=== PATIENT | male | born 1985 | race Caucasian/White ===

== ENCOUNTER 2016-10-27 13:52 | Observation (INO) | payer OTHER ==
[2016-10-27] MEDS ORDERED: Sodium Chloride 0.9% 1000 ML 1,000 ML IV STA (13:53)
[2016-10-27] MEDS ORDERED: Geodon 20 MG INJ IM ONE ×2 (13:55→14:00)
[2016-10-27] MEDS ORDERED: VERSED 5 MG/5 ML ONE (14:01)
[2016-10-27] MEDS: VERSED 5 MG/5 ML IM ONE ×2 (14:02→14:57)
[2016-10-27] MEDS ORDERED: VERSED 5 MG/5 ML IV ONE (14:08)
[2016-10-27] MEDS ORDERED: Sodium Chloride 0.9% 1000 ML 1,000 ML ONE (14:11)
[2016-10-27 14:20] LABS: Mean Cell Volume 92.7 fl (78-100); Mean Corpuscular Hemoglobin 30.9 pg (26-32); Mean Platelet Volume 10.6 fl (6-9.5); Platelet Count 266 K/mm3 (150-450); Red Blood Count 4.53 M/mm3 (4.1-5.6); Red Cell Distribution Width 12.8 % (11.5-14.0); White Blood Count 16.5 K/mm3 (4.0-10.5)
[2016-10-27 14:35] LABS: Collection Type VOID
[2016-10-27 14:44] LABS: ACETAMINOPHEN < 2.0 ug/ml (10-30); ALBUMIN 4.9 g/dL (3.4-5.0); ALKALINE PHOSPHATASE 102 U/L (46-116); ANION GAP 17.4 MEQ/L (5-15); BILIRUBIN,TOTAL 0.7 mg/dL (0.2-1.0); BLOOD UREA NITROGEN 22 mg/dL (9-20); CHLORIDE 103 mEq/L (98-107); Carbon Dioxide 24.9 mEq/L (21-32); Glucose 117 MG/DL (70-110); SGOT/AST 20 U/L (15-37); SGPT/ALT 18 U/L (12-78); SODIUM 141 mEq/L (136-145); Total Protein 8.6 gm/dL (6.4-8.2)
[2016-10-27 14:46] LABS: COMPLETE URINE MICROSCOPIC? YES; Ph 5.5 (5-6)
--- NOTE | 2016-10-27 14:51 | ERPHSYRPT ---
- History of Present Illness Time Seen by Provider: 10/27/16 13:53 Source: patient, EMS, police Patient Subjective Stated Complaint: pt arrived per ambulance for not acting right. pt also escorted by police. pt yelling he wants to . "just put me in the ground" pt found in bath tub of house, there was drugs around pt, pt unsure of drugs he took maybe k2, pt handcuffed to bed, Triage Nursing Assessment: pt mouth twitching back and forth, restless legs, pt alert, anxious. no trauma noted, Physician History: CC: diff breathing Hx: 31 y/o male patient brought to ER per EMS with police in attendance. EMS was called to a residence for diff breathing and drugs. Lots of drug paraperhnalia in the residence. Pt told EMS he wanted to kill himself. Asked police to shoot him so he could . He ran to the bathtub and told EMS he was going to drown himself. Pt was agitated and had to be restrained per police. He apparently has been a patient of [facility] in the past. He denies current medications. Timing/Duration: today Severity: severe Allergies/Adverse Reactions: No Known Drug Allergies Allergy (Unverified 04/27/12 02:27) Home Medications: No Home Meds 04/27/12 [History] Hx Tetanus, Diphtheria Vaccination/Date Given: No Hx Influenza Vaccination/Date Given: No Immunizations Up to Date: Yes - Review of Systems Constitutional: No Fever Respiratory: Dyspnea All Other Systems: Unable due to condition (pt won't answer) - Past Medical History Pertinent Past Medical History: Yes Cardiac History: Other Other Medical History: Heart Murmur - Past Surgical History Past Surgical History: No - Social History Smoking Status: Current every day smoker How long have you smoked: 10yrs Exposure to second hand smoke: Yes Drug Use: none Patient Lives Alone: No - Nursing Vital Signs Nursing Vital Signs: Initial Vital Signs Temperature 99.5 F Temperature Source Oral Pulse Rate 98 Respiratory Rate 16 Blood Pressure [Left Arm] 129/73 Pain Intensity 0 - Physical Exam General Appearance: alert, other (agitated appearance, dry mucous membranes, heavily tattooed sking. ) Eye Exam: PERRL/EOMI Ears, Nose, Throat Exam: dry mucous membranes Neck Exam: supple, No meningismus Respiratory Exam: normal breath sounds Cardiovascular Exam: regular rate/rhythm, tachycardia Gastrointestinal/Abdomen Exam: soft, No tenderness, No distention, No mass, No guarding Extremity Exam: normal inspection, normal range of motion Neurologic Exam: alert, other (partially cooperative) Skin Exam: warm, dry, No rash SpO2 Interpretation: normal SpO2: 99 Oxygen Delivery: Room Air - Course Nursing assessment & vital signs reviewed: Yes EKG Interpreted by Me: RATE (109), Sinus Tach, NORMAL AXIS, Q-wave (borderline inferior), Non-specific ST Changes - Radiology Exams cxr X-ray Interpretation: Reviewed by me, Negative Ordered Tests: Active Orders 24 hr Category Date Time Status CO2 Monitoring STAT Care 10/27/16 13:56 Active Jewelry Engraver STAT Care 10/27/16 13:53 Active Clean Catch Urine Specimen STAT Care 10/27/16 13:53 Active EKG-ER Only STAT Care 10/27/16 13:53 Active IV Insertion STAT Care 10/27/16 13:53 Active NPO (ED) STAT Care 10/27/16 13:56 Active Pulse Oximetry (ED) STAT Care 10/27/16 13:56 Active CHEST 1 VIEW (PORTABLE) Stat Exams 10/27/16 15:07 Completed ACETAMINOPHEN Stat Lab 10/27/16 14:08 Completed CBC W DIFF Stat Lab 10/27/16 14:08 Completed CK-Creatinine Phosphokinase Stat Lab 10/27/16 14:08 Completed CMP Stat Lab 10/27/16 14:08 Completed Ethyl Alcohol,Urine Stat Lab 10/27/16 13:53 Completed Manual Differential NC Stat Lab 10/27/16 14:08 Completed SALICYLATE Stat Lab 10/27/16 14:08 Completed TROPONIN Stat Lab 10/27/16 14:08 Received UA W/ MICROSCOPIC Stat Lab 10/27/16 13:54 Completed Urine Triage Profile Stat Lab 10/27/16 13:54 Completed Medication Summary Discontinued Medications Generic Name Dose Route Start Last Admin Trade Name Freq PRN Reason Stop Dose Admin Sodium Chloride 1,000 mls @ 999 mls/hr 10/27/16 13:53 10/27/16 14:12 Sodium Chloride 0.9% 1000 Ml IV 10/27/16 14:53 999 mls/hr .Q1H1M STA Administration Sodium Chloride Confirm 10/27/16 14:11 Sodium Chloride 0.9% 1000 Ml Administered 10/27/16 14:12 Dose 1,000 mls @ ud .ROUTE .STK-MED ONE Midazolam HCl 5 mg 10/27/16 13:56 10/27/16 14:57 Versed 5 Mg/5 Ml IM 10/27/16 13:57 Not Given STAT ONE Midazolam HCl Confirm 10/27/16 14:01 Versed 5 Mg/5 Ml Administered 10/27/16 14:02 Dose 5 mg .ROUTE .STK-MED ONE Midazolam HCl 1 mg 10/27/16 14:08 10/27/16 14:16 Versed 5 Mg/5 Ml IV 10/27/16 14:09 1 mg STAT ONE Administration Ziprasidone 10 mg 10/27/16 13:55 10/27/16 14:02 Geodon 20 Mg Inj IM 10/27/16 13:56 10 mg STAT ONE Administration Ziprasidone Confirm 10/27/16 14:00 Geodon 20 Mg Inj Administered 10/27/16 14:01 Dose 20 mg IM .STK-MED ONE Lab/Rad Data: Laboratory Result Diagrams 10/27/16 14:08 10/27/16 14:08 Laboratory Results 10/27/16 10/27/16 10/27/16 Range/Units 14:08 14:08 14:08 WBC 16.5 H (4.0-10.5) K/mm3 RBC 4.53 (4.1-5.6) M/mm3 Hgb 14.0 (12.5-18.0) gm/dl Hct 42.0 (42-50) % MCV 92.7 (78-100) fl MCH 30.9 (26-32) pg MCHC 33.3 (32-36) g/dl RDW 12.8 (11.5-14.0) % Plt Count 266 (150-450) K/mm3 MPV 10.6 H (6-9.5) fl Segmented Neutrophils 84 H (36.-66.) % Lymphocytes (Manual) 14 L (24-44) % Monocytes (Manual) 2 (0.0-12.0) % Differential Comment NORMAL Platelet Estimate NORMAL (NORMAL) Sodium 141 (136-145) mEq/L Potassium 4.0 (3.5-5.1) mEq/L Chloride 103 (98-107) mEq/L Carbon Dioxide 24.9 (21-32) mEq/L Anion Gap 17.4 H (5-15) MEQ/L BUN 22 H (9-20) mg/dL Creatinine 1.23 (0.55-1.30) mg/dl Estimated GFR > 60 ML/MIN Glucose 117 H (70-110) MG/DL Calcium 9.8 (8.5-10.1) mg/dL Total Bilirubin 0.7 (0.2-1.0) mg/dL AST 20 (15-37) U/L ALT 18 (12-78) U/L Alkaline Phosphatase 102 (46-116) U/L Creatine Kinase 357 H (39-308) U/L Serum Total Protein 8.6 H (6.4-8.2) gm/dL Albumin 4.9 (3.4-5.0) g/dL Ur Collection Type Urine Color (YELLOW) Urine Appearance (CLEAR) Ur Specific Knott (1.005-1.025) Urine Protein (Negative) Urine Glucose (UA) (NEGATIVE) mg/dL Urine Ketones (NEGATIVE) Urine Nitrite (NEGATIVE) Urine Bilirubin (NEGATIVE) Urine Urobilinogen (0-1) mg/dL Urine WBC (Auto) (NEGATIVE) Urine RBC (Auto) (0-5) Aamir/ul Ur Epithelial Cells (FEW) /HPF Amorphous Crystals (NEGATIVE) /HPF Salicylates 4.9 (2.8-20.0) mg/dl Urine Opiates Level (NEGATIVE) Ur Methadone (NEGATIVE) Acetaminophen < 2.0 L (10-30) ug/ml Urine Barbiturates (NEGATIVE) Ur Phencyclidine (PCP) (NEGATIVE) Urine Amphetamine (NEGATIVE) U Benzodiazepine Level (NEGATIVE) Urine Cocaine (NEGATIVE) Urine Marijuana (THC) (NEGATIVE) Urine pH (3-8.5) Urine Ethyl Alcohol (0.00-20) mg/dl Specimen Received 10/27/16 10/27/16 10/27/16 Range/Units 13:54 13:54 13:53 WBC (4.0-10.5) K/mm3 RBC (4.1-5.6) M/mm3 Hgb (12.5-18.0) gm/dl Hct (42-50) % MCV (78-100) fl MCH (26-32) pg MCHC (32-36) g/dl RDW (11.5-14.0) % Plt Count (150-450) K/mm3 MPV (6-9.5) fl Segmented Neutrophils (36.-66.) % Lymphocytes (Manual) (24-44) % Monocytes (Manual) (0.0-12.0) % Differential Comment Platelet Estimate (NORMAL) Sodium (136-145) mEq/L Potassium (3.5-5.1) mEq/L Chloride (98-107) mEq/L Carbon Dioxide (21-32) mEq/L Anion Gap (5-15) MEQ/L BUN (9-20) mg/dL Creatinine (0.55-1.30) mg/dl Estimated GFR ML/MIN Glucose (70-110) MG/DL Calcium (8.5-10.1) mg/dL Total Bilirubin (0.2-1.0) mg/dL AST (15-37) U/L ALT (12-78) U/L Alkaline Phosphatase (46-116) U/L Creatine Kinase (39-308) U/L Serum Total Protein (6.4-8.2) gm/dL Albumin (3.4-5.0) g/dL Ur Collection Type VOID Urine Color DARK YELLOW (YELLOW) Urine Appearance HAZY (CLEAR) Ur Specific Knott >=1.030 (1.005-1.025) Urine Protein 100 (Negative) Urine Glucose (UA) NEGATIVE (NEGATIVE) mg/dL Urine Ketones NEGATIVE (NEGATIVE) Urine Nitrite NEGATIVE (NEGATIVE) Urine Bilirubin SMALL (NEGATIVE) Urine Urobilinogen 0.2 (0-1) mg/dL Urine WBC (Auto) NEGATIVE (NEGATIVE) Urine RBC (Auto) SMALL (0-5) Aamir/ul Ur Epithelial Cells RARE (FEW) /HPF Amorphous Crystals MANY (NEGATIVE) /HPF Salicylates (2.8-20.0) mg/dl Urine Opiates Level NEG. (NEGATIVE) Ur Methadone NEG. (NEGATIVE) Acetaminophen (10-30) ug/ml Urine Barbiturates NEG. (NEGATIVE) Ur Phencyclidine (PCP) NEG. (NEGATIVE) Urine Amphetamine POS. (NEGATIVE) U Benzodiazepine Level POS. (NEGATIVE) Urine Cocaine NEG. (NEGATIVE) Urine Marijuana (THC) POS. (NEGATIVE) Urine pH 5.5 5.5 (3-8.5) Urine Ethyl Alcohol 4 (0.00-20) mg/dl Specimen Received 10/27/16 1420 - Progress Progress Note: 10/27/16 14:50 Pt was given IV versed and IM geodon. Has been fairly cooperative with nurses. Restraints released. Pt placed under police ID. 10/27/16 15:27 The patient remains sedate. Vitals ok. CO monitoring stable. Spoke to Dr Amso Raza () for ICU observation. He will need medical clearance and mental health evaluation. He is under police ID. A lady is here stating she is his healthcare financial representative trying to get him admitted to a rehab. She is not related. She states [facility] is his POA. She was advised he is being admitted. Counseled pt/family regarding: lab results, diagnosis, need for follow-up - Departure Time of Disposition: 15:28 Departure Disposition: Observation Clinical Impression: excited delerium, Polysubstance abuse, Suicide ideation Condition: Fair Critical Care Time: Yes Critical Care Time(excluding separately billable procedures): 30-74 minutes Referrals: KAUSHIK RAZA [Primary Care Provider] -
[2016-10-27 14:56] LABS: Platelet Estimate NORMAL (NORMAL); Total Cells Counted 100
[2016-10-27 14:58] LABS: Epithelial Cells RARE /HPF (FEW)
--- NOTE | 2016-10-27 15:24 | XRAY ---
Indication: Short of breath. Comparison: None Portable chest demonstrate normal heart, lungs, and bony thorax.
[2016-10-27] MEDS: Dextrose 5%-Lr IV Solution 1000 ML 1,000 ML IV SCH (16:35)
[2016-10-27] MEDS: NEURONTIN 300 MG PO SCH (19:42)
[2016-10-27] MEDS ORDERED: Zyprexa Zydis 5 MG PO SCH (22:00)
[2016-10-27] MEDS ORDERED: Seroquel 100 MG PO SCH (22:00)
[2016-10-27] MEDS ORDERED: zyPREXA 5MG TABLET ONE (23:34)
[2016-10-27] MEDS ORDERED: Nicoderm CQ 21 MG TOP SCH (23:45)
[2016-10-28] MEDS: Dextrose 5%-Lr IV Solution 1000 ML 1,000 ML IV SCH ×2 (00:37→09:45)
--- NOTE | 2016-10-28 07:30 | PCM.HP ---
History of Present Illness - Chief Complaint Chief Complaint: excited delirium, polysubstance abuse, suicide ideation Date: 10/28/16 History of Present Illness: is a 31 year old male. has long history of inpatient stays at many facilities he does have history of schizophrenia and has not been taking medications and has been using amphetamines and other illicit drugs. He states he still does want to and was trying to kill himself last night but does not elaborate any further on this. He has been restful all night since the [facility]. He did eat well with no problems. He denies any difficulty breathing, nausea and has some chronic mild low back and right knee pain but otherwise no complaints. - Review of Systems Constitutional: No Fever, No Chills Eyes: No Symptoms Ears, Nose, & Throat: No Symptoms Respiratory: No Cough, No Short Of Breath Cardiac: No Chest Pain, No Edema, No Syncope Abdominal/Gastrointestinal: No Abdominal Pain, No Nausea, No Vomiting, No Diarrhea Genitourinary Symptoms: No Dysuria Musculoskeletal: Back Pain, Joint Pain, No Neck Pain, No Joint Redness, No Joint Swelling Skin: No Rash Neurological: No Dizziness, No Focal Weakness, No Sensory Changes Psychological: No Symptoms, Drug Abuse, Suicidal Ideations, Emotional Lability, Hallucinations Endocrine: No Symptoms Hematologic/Lymphatic: No Symptoms Immunological/Allergic: No Symptoms Medications & Allergies Home Medications: Home Medication List Escitalopram Oxalate [Lexapro] 20 mg PO DAILY 10/27/16 [History Confirmed ] Gabapentin [Neurontin] 600 mg PO TID 10/27/16 [History Confirmed 10/27/16] Olanzapine [Zyprexa] 7.5 mg PO BID 10/27/16 [History Confirmed 10/27/16] Quetiapine Fumarate [Seroquel] 600 mg PO HS 10/27/16 [History Confirmed 10/27/16 ] Allergies/Adverse Reactions: Allergies Allergy/AdvReac Type Severity Reaction Status Date / Time No Known Drug Allergies Allergy Unverified 10/27/16 15:42 - Past Medical History Past Medical History: Yes Cardiac History: Other Pyscho-Social History: Bipolar, Depression Comment: Heart Murmur. pt lethargic at this time, unable to answer questions - Past Surgical History Past Surgical History: No Other Surgical History: unable to obtain medical history d/t pt lethargic - Social History Smoking Status: Current every day smoker How long have you smoked: 10yrs Exposure to second hand smoke: Yes Alcohol: None Drug Use: marijuana, methamphetamines - Physical Exam Vital Signs: Vital Signs - 24 hr Temp Pulse Resp BP Pulse Ox 10/28/16 06:00 69 16 106/70 99 10/28/16 04:00 76 16 104/63 99 10/28/16 02:00 78 17 105/64 97 10/28/16 00:01 108 H 10/28/16 00:00 108 H 16 128/77 97 10/27/16 22:00 88 16 133/89 98 10/27/16 20:36 100 10/27/16 20:00 87 10/27/16 19:48 87 12 109/64 100 10/27/16 18:00 84 18 103/62 99 10/27/16 16:48 97.7 F 84 23 111/65 100 10/27/16 16:06 97.7 F 84 23 111/65 100 10/27/16 16:05 82 23 100 10/27/16 15:31 97 H 16 126/79 10/27/16 15:29 99 10/27/16 14:51 98 H 16 129/73 97 10/27/16 14:50 118 H 18 128/64 99 10/27/16 14:27 149/85 10/27/16 14:18 99 10/27/16 13:53 99.5 F 121 H 16 98 Oxygen-Last 24 hours O2 Percentage 2 Liters = 28% O2 Percentage 2 Liters = 28% O2 Percentage 2 Liters = 28% General Appearance: no apparent distress, alert Neurologic Exam: alert, oriented x 3, cooperative, nml cerebellar function, nml station & gait, sensation nml, depressed mood/affect, No motor deficits Eye Exam: PERRL/EOMI, eyes nml inspection Ears, Nose, Throat Exam: moist mucous membranes Neck Exam: normal inspection, non-tender, supple Respiratory Exam: normal breath sounds, lungs clear Cardiovascular Exam: regular rate/rhythm, normal heart sounds, No murmur Gastrointestinal/Abdomen Exam: soft, normal bowel sounds, No tenderness, No distention Extremity Exam: normal inspection, No calf tenderness Skin Exam: normal color, warm, dry Assessment/Plan (1) Suicide ideation Current Visit: Yes Status: Acute Assessment & Plan: he is still suicidal at this point and still has voices the nurse reports last night that he was hearing it was unclear what they were telling him. Medically he seems to be doing ok from the polysubstance abuse and the amphetamine toxicity but psychologically he is still very depressed suicidal and with psychosis will have the [facility] consult. He is medically stable for transfer to inpatient psychiatric unit Code(s): R45.851 - SUICIDAL IDEATIONS (2) Polysubstance abuse Current Visit: Yes Status: Acute Code(s): F19.10 - OTHER PSYCHOACTIVE SUBSTANCE ABUSE, UNCOMPLICATED (3) Schizophrenia Current Visit: Yes Status: Acute Code(s): F20.9 - SCHIZOPHRENIA, UNSPECIFIED
[2016-10-28] MEDS: NEURONTIN 300 MG PO SCH ×2 (09:44→16:39)
[2016-10-28] MEDS ORDERED: OLANZAPINE 7.5 MG PO SCH (10:00)
[2016-10-28] MEDS ORDERED: Lexapro 10 MG PO SCH (10:00)
[2016-10-28] MEDS ORDERED: NON-FORMULARY ITEM (Escitalopram Oxalate [Lexapro] 20 MG) PO SCH (10:00)
[2016-10-28] MEDS ORDERED: zyPREXA 5MG TABLET PO SCH (10:00)
[2016-10-28 16:52] VITALS: BP 126/70; PULSE 94; O2SAT 98
== END 2016-10-28 18:00 ==
LOC: ED 13:52 → ICU 16:04
PROVIDERS: ADMIT Family Medicine; ATTEND Family Medicine
DX: R45.851 Suicidal ideations (principal); F19.10 Other psychoactive substance abuse, uncomplicated; F20.9 Schizophrenia, unspecified; F05 Delirium due to known physiological condition
CPT/HCPCS: 36000; 36415; 71010; 80053; 80307; 80320; 81000; 82550; 83986; 84484; 85025; 90791; 93005; 93041; 94770; 96360; 96372; 96374; 99284; 99285; 99291; G0378; G0481; J2250; J3486; Q3014

== ENCOUNTER 2018-04-09 00:04 | Emergency (ER) | payer OTHER ==
--- NOTE | 2018-04-09 00:18 | ERPHSYRPT ---
- History of Present Illness Time Seen by Provider: 04/09/18 00:05 Source: patient, EMS Exam Limitations: no limitations Physician History: 32 y/o white male presents via ems after police argument between pt and his sig other. police arrived and found methamphetamine possession. pt was handcuffed then collaped. pt brought here via ems for medical clearance for assisted. upon arrival, pt denies pain anywhere. he denied to me suicidal and homicidal ideation/plan. however, after i left room pt told rn he has had some suicidal thoughts in the past. has no current plan. pt admits to marijuana use no other illicit drug use. ems gave 2.5mg iv versed for his agitation which seemed to help. pt states he did fall and hit his head. Timing/Duration: today Severity of Symptoms-Max: moderate Severity of Symptoms-Current: mild Context related to: significant other Suicidal thoughts: other (none) Associated Symptoms: angry, agitated, anxiety, hostile Previous symptoms: same symptoms as today Allergies/Adverse Reactions: No Known Drug Allergies Allergy (Verified 04/09/18 00:51) Home Medications: Gabapentin [Neurontin] 600 mg PO TID 10/27/16 [History] Quetiapine Fumarate [Seroquel] 600 mg PO HS 10/27/16 [History] Hx Tetanus, Diphtheria Vaccination/Date Given: No Hx Influenza Vaccination/Date Given: No - Past Medical History Pertinent Past Medical History: Yes Neurological History: No Pertinent History ENT History: No Pertinent History Cardiac History: Other Respiratory History: No Pertinent History Endocrine Medical History: No Pertinent History Musculoskeletal History: No Pertinent History GI Medical History: No Pertinent History History: No Pertinent History Psycho-Social History: Bipolar, Depression Other Medical History: Heart Murmur. pt lethargic at this time, unable to answer questions - Past Surgical History Past Surgical History: No Neuro Surgical History: No Pertinent History Cardiac: No Pertinent History Respiratory: No Pertinent History Gastrointestinal: No Pertinent History Genitourinary: No Pertinent History Musculoskeletal: No Pertinent History Male Surgical History: No Pertinent History Other Surgical History: unable to obtain medical history d/t pt lethargic - Social History Smoking Status: Current every day smoker How long have you smoked: 10yrs Exposure to second hand smoke: Yes Drug Use: marijuana, methamphetamines Patient Lives Alone: No - Review of Systems Constitutional: No Symptoms, No Fever, No Chills Eyes: No Symptoms, No Discharge, No Eye Pain Ears, Nose, & Throat: No Symptoms, No Ear Pain Respiratory: No Symptoms, No Cough, No Dyspnea, No Stridor, No Wheezing Cardiac: No Symptoms, No Chest Pain, No Palpitations, No Syncope Abdominal/Gastrointestinal: No Symptoms, No Abdominal Pain, No Nausea, No Vomiting, No Diarrhea Genitourinary Symptoms: No Symptoms, No Dysuria, No Frequency, No Hematuria Musculoskeletal: No Symptoms Skin: No Symptoms Neurological: No Symptoms Psychological: Anxiety, Emotional Lability, Mood Changes Endocrine: No Symptoms Hematologic/Lymphatic: No Symptoms Immunological/Allergic: No Symptoms All Other Systems: Reviewed and Negative - Nursing Vital Signs Nursing Vital Signs: Initial Vital Signs Temperature 98.0 F 04/09/18 00:06 Pulse Rate 106 H 04/09/18 00:06 Respiratory Rate 20 04/09/18 00:06 Blood Pressure 151/99 04/09/18 00:06 O2 Sat by Pulse Oximetry 99 04/09/18 00:06 Pain Scale Pain Intensity 4 - Physical Exam General Appearance: no apparent distress, alert, anxiety Eyes, Ears, Nose, Throat Exam: normal ENT inspection Neck Exam: normal inspection, non-tender, supple, full range of motion Respiratory Exam: normal breath sounds, lungs clear, airway intact, No chest tenderness, No respiratory distress Cardiovascular Exam: regular rate/rhythm, normal heart sounds, normal peripheral pulses Gastrointestinal/Abdominal Exam: soft, normal bowel sounds, tenderness (mild diffuse), guarding, rebound Extremities Exam: normal inspection, normal range of motion Neurological Exam: alert, calm, cloth classer II-XII nml as tested, oriented x 3 Appearance: denies illness, impaired insight Behavior/Eye Contact/Speech: alert & cooperative (pt with dystonic movements) Thoughts/Hallucinations: flight of ideas, incoherent Skin Exam: normal color, warm, dry SpO2 Interpretation: normal Oxygen Delivery: Room Air - Course Nursing assessment & vital signs reviewed: Yes Ordered Tests: Active Orders 24 hr Category Date Time Status Equipment Operation Instructor STAT Care 04/09/18 00:23 Active EKG-ER Only STAT Care 04/09/18 00:22 Active IV Insertion STAT Care 04/09/18 00:22 Active HEAD WITHOUT CONTRAST [CT] Stat Exams 04/09/18 01:09 Taken ACETAMINOPHEN Stat Lab 04/09/18 00:22 Completed CBC W DIFF Stat Lab 04/09/18 00:22 Completed CMP Stat Lab 04/09/18 00:22 Completed ETHYL ALCOHOL Stat Lab 04/09/18 00:22 Completed SALICYLATE Stat Lab 04/09/18 00:22 Completed UA W/RFX UR CULTURE Stat Lab 04/09/18 00:00 Completed Urine Triage Profile Stat Lab 04/09/18 00:00 Completed Medication Summary Discontinued Medications Generic Name Dose Route Start Last Admin Trade Name Torres PRN Reason Stop Dose Admin Sodium Chloride 1,000 mls @ 999 mls/hr 04/09/18 00:22 04/09/18 00:49 Sodium Chloride 0.9% 1000 Ml IV 04/09/18 01:22 999 mls/hr .Q1H1M STA Administration Sodium Chloride Confirm 04/09/18 00:33 Sodium Chloride 0.9% 1000 Ml Administered 04/09/18 00:34 Dose 1,000 mls @ ud .ROUTE .STK-MED ONE Lorazepam 1 mg 04/09/18 00:22 04/09/18 00:48 Ativan 2 Mg/1 Ml Vial IV 04/09/18 00:23 1 mg STAT ONE Administration Lorazepam Confirm 04/09/18 00:33 Ativan 2 Mg/1 Ml Vial Administered 04/09/18 00:34 Dose 2 mg .ROUTE .STK-MED ONE Ondansetron HCl 4 mg 04/09/18 00:22 04/09/18 00:52 Zofran 4 Mg/2 Ml Vial IV 04/09/18 00:23 Not Given STAT ONE Ondansetron HCl Confirm 04/09/18 00:33 Zofran 4 Mg/2 Ml Vial Administered 04/09/18 00:34 Dose 4 mg .ROUTE .STK-MED ONE Lab/Rad Data: Laboratory Result Diagrams 04/09/18 00:22 04/09/18 00:22 Laboratory Results 04/09/18 04/09/18 04/09/18 Range/Units 00:22 00:22 00:00 WBC 16.3 H (4.0-10.5) K/mm3 RBC 4.54 (4.1-5.6) M/mm3 Hgb 14.0 (12.5-18.0) gm/dl Hct 41.5 L (42-50) % MCV 91.4 (78-100) fl MCH 30.8 (26-32) pg MCHC 33.7 (32-36) g/dl RDW 14.0 (11.5-14.0) % Plt Count 335 (150-450) K/mm3 MPV 10.8 H (6-9.5) fl Gran % 75.4 H (36.0-66.0) % Eos # (Auto) 0.01 (0-0.5) Absolute Lymphs (auto) 1.97 (1.0-4.6) Absolute Monos (auto) 1.98 H (0.0-1.3) Lymphocytes % 12.1 L (24.0-44.0) % Monocytes % 12.2 H (0.0-12.0) % Eosinophils % 0.1 (0.00-5.0) % Basophils % 0.2 (0.0-0.4) % Absolute Granulocytes 12.26 H (1.4-6.9) Basophils # 0.04 (0-0.4) Sodium 142 (137-145) mmol/L Potassium 4.4 (3.5-5.1) mmol/L Chloride 104 (98-107) mmol/L Carbon Dioxide 27 (22-30) mmol/L Anion Gap 15.7 H (5-15) MEQ/L BUN 21 H (9-20) mg/dL Creatinine 0.88 (0.66-1.25) mg/dL Estimated GFR > 60.0 ML/MIN Glucose 75 (74-106) mg/dL Calcium 10.1 (8.4-10.2) mg/dL Total Bilirubin 0.40 (0.2-1.3) mg/dL AST 23 (17-59) U/L ALT 26 (0-50) U/L Alkaline Phosphatase 95 (38-126) U/L Serum Total Protein 8.2 (6.3-8.2) g/dL Albumin 4.9 (3.5-5.0) g/dL Ur Collection Type Urine Color (YELLOW) Urine Appearance (CLEAR) Urine pH (5-6) Ur Specific [place] (1.005-1.025) Urine Protein (Negative) Urine Ketones (NEGATIVE) Urine Blood (0-5) Aamir/ul Urine Nitrite (NEGATIVE) Urine Bilirubin (NEGATIVE) Urine Urobilinogen (0-1) mg/dL Ur Leukocyte Esterase (NEGATIVE) Urine Culture Reflexed (NO) Urine Glucose (NEGATIVE) mg/dL Salicylates < 1.0 L (2-20) mg/dL Urine Opiates Level NEGATIVE (NEGATIVE) Ur Methadone NEGATIVE (NEGATIVE) Acetaminophen < 10 L (10-30) ug/ml Urine Barbiturates NEGATIVE (NEGATIVE) Ur Phencyclidine (PCP) NEGATIVE (NEGATIVE) Urine Amphetamine POSITIVE (NEGATIVE) U Benzodiazepine Level POSITIVE (NEGATIVE) Urine Cocaine NEGATIVE (NEGATIVE) Urine Marijuana (THC) POSITIVE (NEGATIVE) Ethyl Alcohol < 10 (0-10) mg/dL Specimen Received 04/09/18 Range/Units 00:00 WBC (4.0-10.5) K/mm3 RBC (4.1-5.6) M/mm3 Hgb (12.5-18.0) gm/dl Hct (42-50) % MCV (78-100) fl MCH (26-32) pg MCHC (32-36) g/dl RDW (11.5-14.0) % Plt Count (150-450) K/mm3 MPV (6-9.5) fl Gran % (36.0-66.0) % Eos # (Auto) (0-0.5) Absolute Lymphs (auto) (1.0-4.6) Absolute Monos (auto) (0.0-1.3) Lymphocytes % (24.0-44.0) % Monocytes % (0.0-12.0) % Eosinophils % (0.00-5.0) % Basophils % (0.0-0.4) % Absolute Granulocytes (1.4-6.9) Basophils # (0-0.4) Sodium (137-145) mmol/L Potassium (3.5-5.1) mmol/L Chloride (98-107) mmol/L Carbon Dioxide (22-30) mmol/L Anion Gap (5-15) MEQ/L BUN (9-20) mg/dL Creatinine (0.66-1.25) mg/dL Estimated GFR ML/MIN Glucose (74-106) mg/dL Calcium (8.4-10.2) mg/dL Total Bilirubin (0.2-1.3) mg/dL AST (17-59) U/L ALT (0-50) U/L Alkaline Phosphatase (38-126) U/L Serum Total Protein (6.3-8.2) g/dL Albumin (3.5-5.0) g/dL Ur Collection Type VOID Urine Color DARK YELLOW (YELLOW) Urine Appearance CLEAR (CLEAR) Urine pH 6.0 (5-6) Ur Specific [place] 1.025 (1.005-1.025) Urine Protein NEGATIVE (Negative) Urine Ketones NEGATIVE (NEGATIVE) Urine Blood NEGATIVE (0-5) Aamir/ul Urine Nitrite NEGATIVE (NEGATIVE) Urine Bilirubin NEGATIVE (NEGATIVE) Urine Urobilinogen NORMAL (0-1) mg/dL Ur Leukocyte Esterase NEGATIVE (NEGATIVE) Urine Culture Reflexed NO (NO) Urine Glucose NEGATIVE (NEGATIVE) mg/dL Salicylates (2-20) mg/dL Urine Opiates Level (NEGATIVE) Ur Methadone (NEGATIVE) Acetaminophen (10-30) ug/ml Urine Barbiturates (NEGATIVE) Ur Phencyclidine (PCP) (NEGATIVE) Urine Amphetamine (NEGATIVE) U Benzodiazepine Level (NEGATIVE) Urine Cocaine (NEGATIVE) Urine Marijuana (THC) (NEGATIVE) Ethyl Alcohol (0-10) mg/dL Specimen Received 04/09/18 0000 - Progress Progress: unchanged, re-examined Progress Note: 04/09/18 02:24 pt refused ativan. pt medically cleared to go to assisted. pts urine drug screen positive for thc, benzos, amphetamines and methamphetamines Counseled pt/family regarding: drug and/or alcohol abuse, lab results, diagnosis - Departure Time of Disposition: 02:25 Departure Disposition: Detention/Halfway Clinical Impression: Polysubstance abuse, Agitation Condition: Stable Critical Care Time: No Referrals: KAUSHIK RAZA [Primary Care Provider] -
[2018-04-09] MEDS ORDERED: Zofran 4 MG/2 ML VIAL IV ONE (00:22)
[2018-04-09] MEDS ORDERED: Ativan 2 MG/1 ML VIAL IV ONE (00:22)
[2018-04-09] MEDS ORDERED: Sodium Chloride 0.9% 1000 ML 1,000 ML IV STA (00:22)
[2018-04-09] MEDS ORDERED: Ativan 2 MG/1 ML VIAL ONE (00:33)
[2018-04-09] MEDS ORDERED: Zofran 4 MG/2 ML VIAL ONE (00:33)
[2018-04-09] MEDS ORDERED: Sodium Chloride 0.9% 1000 ML 1,000 ML ONE (00:33)
[2018-04-09 01:06] LABS: Appearance CLEAR (CLEAR); Bilirubin NEGATIVE (NEGATIVE); Blood NEGATIVE Ery/ul (0-5); Glucose NEGATIVE (NEGATIVE); Ketones NEGATIVE (NEGATIVE); Leukocyte Esterase NEGATIVE (NEGATIVE); Nitrite NEGATIVE (NEGATIVE); Protein,Urine Dip NEGATIVE (Negative); Specific Gravity 1.025 (1.005-1.025); Urobilinogen NORMAL mg/dL (0-1)
[2018-04-09 01:07] VITALS: O2SAT 97
[2018-04-09 01:18] LABS: Barbiturate,Urine NEGATIVE (NEGATIVE); Benzodiazepine,Urine POSITIVE (NEGATIVE); Cocaine,Urine NEGATIVE (NEGATIVE); Methadone,Urine NEGATIVE (NEGATIVE); Opiate,Urine NEGATIVE (NEGATIVE); PCP,Urine NEGATIVE (NEGATIVE); THC,Urine POSITIVE (NEGATIVE)
[2018-04-09 02:02] LABS: ALBUMIN 4.9 g/dL (3.5-5.0); ALKALINE PHOSPHATASE 95 U/L (38-126); ANION GAP 15.7 MEQ/L (5-15); BLOOD UREA NITROGEN 21 mg/dL (9-20); CHLORIDE 104 mmol/L (98-107); Calcium 10.1 mg/dL (8.4-10.2); Carbon Dioxide 27 mmol/L (22-30); Creatinine 1 0.88 mg/dL (0.66-1.25); Glucose 75 mg/dL (74-106); Potassium 4.4 mmol/L (3.5-5.1); SGOT/AST 23 U/L (17-59); SGPT/ALT 26 U/L (0-50); SODIUM 142 mmol/L (137-145); Total Protein 8.2 g/dL (6.3-8.2)
[2018-04-09 02:04] VITALS: BP 150/76; PULSE 91
[2018-04-09 02:05] LABS: BASOPHIL % 0.2 % (0.0-0.4); Basophil (Absolute #) 0.04 (0-0.4); Eosinophil % 0.1 % (0.00-5.0); Eosinophil (Absolute #) 0.01 (0-0.5); Granulocyte Absolute (ANC) 12.26 (1.4-6.9); Granulocytes % 75.4 % (36.0-66.0); Hematocrit 41.5 % (42-50); Lymphocyte (Absolute #) 1.97 (1.0-4.6); Lymphocytes % 12.1 % (24.0-44.0); Mean Cell Volume 91.4 fl (78-100); Mean Corpuscular Hemoglobin 30.8 pg (26-32); Mean Corpuscular Hgb Concent. 33.7 g/dl (32-36); Mean Platelet Volume 10.8 fl (6-9.5); Monocyte (Absolute #) 1.98 (0.0-1.3); Monocytes % 12.2 % (0.0-12.0); Platelet Count 335 K/mm3 (150-450); Red Blood Count 4.54 M/mm3 (4.1-5.6); White Blood Count 16.3 K/mm3 (4.0-10.5)
[2018-04-09 02:15] LABS: ACETAMINOPHEN < 10 ug/ml (10-30); ETHYL ALCOHOL < 10 mg/dL (0-10); SALICYLATE < 1.0 mg/dL (2-20)
[2018-04-09 02:16] LABS: Amphetamine,Urine POSITIVE (NEGATIVE)
[2018-04-09 04:38] LABS: Slide Review 1 YES
--- NOTE | 2018-04-09 09:02 | XRAY ---
Indication: Status post fall. Patient on drugs. Multiple contiguous axial images obtained through the head without contrast. Comparison: None. Study is slightly degraded by motion artifact even with repeat CT. Ventriculosulcal pattern appears symmetric. No gross acute intracranial hemorrhage, abnormal extra-axial fluid collection, or mass effect. Fourth ventricle is midline without hydrocephalus. Hoskins-white matter differentiation preserved. Bony calvarium grossly intact. Visualized paranasal sinuses and mastoid air cells are clear. Impression: 1. Motion artifact. 2. No gross acute intracranial abnormalities. Comment: Preliminary interpretation was made by [facility]. No discrepancy. CT DI 62.53
== END 2018-04-09 02:35 | disposition home or self-care (01) ==
LOC: ED 00:04
DX: F19.10 Other psychoactive substance abuse, uncomplicated (principal); R45.1 Restlessness and agitation; R55 Syncope and collapse; W18.30XA Fall on same level, unspecified, initial encounter; Y93.89 Activity, other specified
CPT/HCPCS: 36000; 36415; 70450; 80053; 80307; 81002; 85025; 93005; 93041; 96360; 96374; 96375; 99285; G0481; J2060; J2405; G0480

== ENCOUNTER 2018-07-01 22:13 | Emergency (ER) | payer OTHER ==
[2018-07-01 22:40] VITALS: O2SAT 100
--- NOTE | 2018-07-01 23:00 | ERPHSYRPT ---
- History of Present Illness Time Seen by Provider: 07/01/18 22:55 Source: patient, police Exam Limitations: no limitations Patient Subjective Stated Complaint: Numbness on left side Triage Nursing Assessment: Patient ambulated back to ER per self and transferred self to bed. Patient complains of numbness and feeling cold on left side. Patient states he has been feeling this way since 06/24/18. Patient current user of Meth, K-2, Marijuana. Patient's speech is slurred and is drooling periodically down right side of face. Patient's drip to right hand weak. Patient's smile is droop to the right side. Patient complains of headache 12/22. Patient was incarcarated on 06/30/18 amd started feeling worse today the skilled nursing staff brought him in. Physician History: The patient is a 32-year-old inmate at the local skilled nursing accompanied by a dredge master complaining that he has difficulty speaking, right upper extremity and lower extremity numbness, and mild weakness in his right hand since June 24, 2018 when he smoked K2. Right after smoking K2, he was not able to form any words. He now slurs his speech. His speaking ability has not changed since regaining the ability to speak later on in the day on June 24. At first he was not able to walk but shortly after the smoking, he has been able to walk. He has smoked K2 in the past and has had trouble immediately after smoking it with speaking. In the past his speaking problem has always resolved quickly. He denies headache. He denies problems with urination or defecation. His past medical history is significant for drug abuse and schizophrenia. Timing/Duration: day(s) (), sudden, improved Severity: moderate Character of Deficits: new weakness, impaired speech, Right Facial, RUE Deficits: decrease ability to walk Baseline/Normal Cognition: alert oriented x 3 Current Cognition: alert oriented x 3 Baseline Gait: walks w/o assistance Associated Symptoms: paresthesia, trouble walking Allergies/Adverse Reactions: No Known Drug Allergies Allergy (Verified 07/01/18 22:39) Hx Tetanus, Diphtheria Vaccination/Date Given: No Hx Influenza Vaccination/Date Given: No Hx Pneumococcal Vaccination/Date Given: Yes - Review of Systems Constitutional: No Fever, No Chills Eyes: No Symptoms Ears, Nose, & Throat: No Symptoms Respiratory: No Cough, No Dyspnea Cardiac: No Chest Pain, No Edema, No Syncope Abdominal/Gastrointestinal: No Abdominal Pain, No Nausea, No Vomiting, No Diarrhea Genitourinary Symptoms: No Dysuria Musculoskeletal: No Back Pain, No Neck Pain Skin: No Rash Neurological: Parasthesia, Speech Changes, No Headache Psychological: No Symptoms Endocrine: No Symptoms Hematologic/Lymphatic: No Symptoms Immunological/Allergic: No Symptoms All Other Systems: Reviewed and Negative - Past Medical History Pertinent Past Medical History: Yes Neurological History: No Pertinent History ENT History: No Pertinent History Cardiac History: Other Respiratory History: No Pertinent History Endocrine Medical History: No Pertinent History Musculoskeletal History: No Pertinent History GI Medical History: No Pertinent History History: No Pertinent History Psycho-Social History: Bipolar, Depression Other Medical History: Heart Murmur - Past Surgical History Past Surgical History: No Neuro Surgical History: No Pertinent History Cardiac: No Pertinent History Respiratory: No Pertinent History Gastrointestinal: No Pertinent History Genitourinary: No Pertinent History Musculoskeletal: No Pertinent History Male Surgical History: No Pertinent History Other Surgical History: unable to obtain medical history d/t pt lethargic - Social History Smoking Status: Current every day smoker How long have you smoked: 10yrs Exposure to second hand smoke: Yes Drug Use: marijuana, methamphetamines, other Patient Lives Alone: No (In skilled nursing) - Nursing Vital Signs Nursing Vital Signs: Initial Vital Signs Temperature 97.9 F 07/01/18 22:27 Pulse Rate 88 07/01/18 22:27 Respiratory Rate 18 07/01/18 22:27 Blood Pressure 157/84 07/01/18 22:27 O2 Sat by Pulse Oximetry 100 07/01/18 22:27 Pain Scale Pain Intensity 4 - Taylor Coma Scale Best Eye Response (Taylor): (4) open spontaneously Best Verbal Response ([place]): (5) oriented Best Motor Response ([place]): (6) obeys commands [place] Total: 15 - Physical Exam General Appearance: no apparent distress, alert Eye Exam: bilateral eye: normal inspection, PERRL, EOMI Ears, Nose, Throat Exam: normal ENT inspection, moist mucous membranes Neck Exam: normal inspection, non-tender, supple Respiratory: normal breath sounds, lungs clear, airway intact, No respiratory distress Cardiovascular: regular rate/rhythm, No edema Gastrointestinal: soft, No tenderness, No distention Rectal Exam: not done Back Exam: normal inspection Extremity Exam: normal inspection, No pedal edema Mental Status: alert, oriented x 3 Coordination/Gait: normal finger to nose, No normal gait (unable to evaluate due to ankle shackles) Motor/Sensory: sensory deficit (The patient has moderate sensory deficit and right V1 of the face and severe sensory deficit V2 and V3 on the right face. The patient has very poor recognition of tactile stimulation to the entire right arm and right leg area), weak motor strength RUE Skin Exam: normal color, warm, dry, No rash SpO2 Interpretation: normal SpO2: 100 Oxygen Delivery: Room Air - Course EKG Interpreted by Me: RATE, Sinus Rhythm, NORMAL AXIS, NORMAL INTERVALS, NORMAL QRS, NORMAL ST-T - CT Exams Head CT Interpretation: Negative, Tele-radiologist Report (per Dr Maravilla) Ordered Tests: Active Orders 24 hr Category Date Time Status Accucheck STAT Care 07/01/18 23:03 Active Clean Catch Urine Specimen STAT Care 07/01/18 23:03 Active EKG-ER Only STAT Care 07/01/18 23:03 Active IV Insertion STAT Care 07/01/18 23:03 Active HEAD WITHOUT CONTRAST [CT] Stat Exams 07/01/18 23:41 Taken BMP Stat Lab 07/01/18 23:25 Completed CBC W DIFF Stat Lab 07/01/18 23:25 Completed UA W/RFX UR CULTURE Stat Lab 07/01/18 23:25 Results Urine Triage Profile Stat Lab 07/01/18 23:25 Received Medication Summary Discontinued Medications Generic Name Dose Route Start Last Admin Trade Name Freq PRN Reason Stop Dose Admin Potassium Chloride 40 meq 07/02/18 00:02 Klor Con 10 Meq PO 07/02/18 00:03 STAT ONE Lab/Rad Data: Laboratory Result Diagrams 07/01/18 23:25 07/01/18 23:25 Laboratory Results 07/01/18 07/01/18 07/01/18 Range/Units 23:25 23:25 23:25 WBC 8.0 (4.0-10.5) K/mm3 RBC 4.33 (4.1-5.6) M/mm3 Hgb 13.3 (12.5-18.0) gm/dl Hct 40.0 L (42-50) % MCV 92.4 (78-100) fl MCH 30.7 (26-32) pg MCHC 33.3 (32-36) g/dl RDW 13.4 (11.5-14.0) % Plt Count 322 (150-450) K/mm3 MPV 10.0 H (6-9.5) fl Gran % 59.7 (36.0-66.0) % Eos # (Auto) 0.10 (0-0.5) Absolute Lymphs (auto) 2.07 (1.0-4.6) Absolute Monos (auto) 1.05 (0.0-1.3) Lymphocytes % 25.8 (24.0-44.0) % Monocytes % 13.1 H (0.0-12.0) % Eosinophils % 1.2 (0.00-5.0) % Basophils % 0.2 (0.0-0.4) % Absolute Granulocytes 4.77 (1.4-6.9) Basophils # 0.02 (0-0.4) Sodium 138 (137-145) mmol/L Potassium 3.2 L (3.5-5.1) mmol/L Chloride 99 (98-107) mmol/L Carbon Dioxide 29 (22-30) mmol/L Anion Gap 13.2 (5-15) MEQ/L BUN 17 (9-20) mg/dL Creatinine 0.67 (0.66-1.25) mg/dL Estimated GFR > 60.0 ML/MIN Glucose 102 (74-106) mg/dL Calcium 9.6 (8.4-10.2) mg/dL Urine Color CARLOS (YELLOW) Urine Appearance CLEAR (CLEAR) Urine pH 5.0 (5-6) Ur Specific [place] 1.024 (1.005-1.025) Urine Protein 30 (Negative) Urine Ketones TRACE (NEGATIVE) Urine Blood NEGATIVE (0-5) Aamir/ul Urine Nitrite NEGATIVE (NEGATIVE) Urine Bilirubin SMALL (NEGATIVE) Urine Urobilinogen 4 (0-1) mg/dL Ur Leukocyte Esterase NEGATIVE (NEGATIVE) Urine WBC (Auto) 0-2 (0-5) /HPF Urine RBC (Auto) 0-2 (0-2) /HPF U Epithel Cells (Auto) Pending Calcium Oxalate Crystal 2-5 (NEGATIVE) /HPF Urine Mucus (Auto) MANY (NEGATIVE) /HPF Urine Culture Reflexed NO (NO) Urine Glucose NEGATIVE (NEGATIVE) mg/dL - Progress Progress: improved - Departure Time of Disposition: 00:20 Departure Disposition: Transfer ([facility] to [facility] per Dr Cisneros.) Clinical Impression: Slurred speech, Paresthesias, Hypokalemia Condition: Stable Critical Care Time: No Referrals: KAUSHIK RAZA [ACTIVE STAFF] -
[2018-07-01 23:35] LABS: BASOPHIL % 0.2 % (0.0-0.4); Basophil (Absolute #) 0.02 (0-0.4); Eosinophil % 1.2 % (0.00-5.0); Granulocyte Absolute (ANC) 4.77 (1.4-6.9); Granulocytes % 59.7 % (36.0-66.0); Hemoglobin 13.3 gm/dl (12.5-18.0); Lymphocyte (Absolute #) 2.07 (1.0-4.6); Lymphocytes % 25.8 % (24.0-44.0); Mean Cell Volume 92.4 fl (78-100); Mean Corpuscular Hemoglobin 30.7 pg (26-32); Mean Corpuscular Hgb Concent. 33.3 g/dl (32-36); Monocyte (Absolute #) 1.05 (0.0-1.3); Monocytes % 13.1 % (0.0-12.0); Platelet Count 322 K/mm3 (150-450); Red Blood Count 4.33 M/mm3 (4.1-5.6); Red Cell Distribution Width 13.4 % (11.5-14.0)
[2018-07-01 23:49] LABS: Appearance CLEAR (CLEAR); Bilirubin SMALL (NEGATIVE); Blood NEGATIVE Ery/ul (0-5); Glucose NEGATIVE (NEGATIVE); Ketones TRACE (NEGATIVE); Leukocyte Esterase NEGATIVE (NEGATIVE); Nitrite NEGATIVE (NEGATIVE); Protein,Urine Dip 30 (Negative); Specific Gravity 1.024 (1.005-1.025); Urobilinogen 4 mg/dL (0-1)
[2018-07-01 23:54] LABS: ANION GAP 13.2 MEQ/L (5-15); BLOOD UREA NITROGEN 17 mg/dL (9-20); Barbiturate,Urine NEGATIVE (NEGATIVE); Benzodiazepine,Urine NEGATIVE (NEGATIVE); CHLORIDE 99 mmol/L (98-107); Calcium 9.6 mg/dL (8.4-10.2); Carbon Dioxide 29 mmol/L (22-30); Cocaine,Urine NEGATIVE (NEGATIVE); Creatinine 1 0.67 mg/dL (0.66-1.25); Glucose 102 mg/dL (74-106); Methadone,Urine NEGATIVE (NEGATIVE); Opiate,Urine NEGATIVE (NEGATIVE); PCP,Urine NEGATIVE (NEGATIVE); Potassium 3.2 mmol/L (3.5-5.1); SODIUM 138 mmol/L (137-145); THC,Urine POSITIVE (NEGATIVE)
[2018-07-02] MEDS ORDERED: Klor Con 10 MEQ PO ONE ×2 (00:02→00:06)
[2018-07-02 00:03] VITALS: BP 134/80; PULSE 83
[2018-07-02] MEDS ORDERED: Ecotrin 325 MG PO STA (00:10)
[2018-07-02 00:19] LABS: Amphetamine,Urine POSITIVE (NEGATIVE)
--- NOTE | 2018-07-02 09:11 | XRAY ---
Indication: Slurred speech and right facial numbness following smoking drugs. Multiple contiguous axial images obtained through the head without contrast. Comparison: April 09, 2018. Again normal brain parenchyma, ventricles, and bony calvarium. Visualized paranasal sinuses and mastoid air cells are clear. Impression: Normal CT head without contrast exam. Comment: Preliminary interpretation was made by [facility]. No discrepancy. CT DI 70.31
== END 2018-07-02 01:27 | disposition short-term general hospital (02) ==
LOC: ED 22:13 → EEVIPCON 22:13 → ED 07-02 01:27
DX: R47.81 Slurred speech (principal); R20.2 Paresthesia of skin; E87.6 Hypokalemia; F20.9 Schizophrenia, unspecified
CPT/HCPCS: 36000; 36415; 70450; 80048; 80307; 81001; 82962; 85025; 93005; 99285; A9270-GY

== ENCOUNTER 2019-04-26 02:16 | Emergency (ER) | payer OTHER | END 2019-04-26 03:51 | disposition home or self-care (01) | LOC: ED 02:16 ==

== ENCOUNTER 2021-03-20 17:55 | Emergency (ER) | payer OTHER ==
[2021-03-20 18:55] LABS: Absolute Neutrophil Ct (ANC) 18.03 (1.4-6.9); BASOPHIL % 0.1 % (0.0-0.4); Basophil (Absolute #) 0.02 (0-0.4); Eosinophil (Absolute #) 0.01 (0-0.5); Hematocrit 50.6 % (42-50); Hemoglobin 18.2 gm/dl (12.5-18.0); Lymphocyte (Absolute #) 0.76 (1.0-4.6); Lymphocytes % 3.5 % (24.0-44.0); Mean Cell Volume 85.8 fl (78-100); Mean Corpuscular Hemoglobin 30.8 pg (26-32); Mean Platelet Volume 11.5 fl (7.5-11.0); Monocyte (Absolute #) 3.09 (0.0-1.3); Monocytes % 14.1 % (0.0-12.0); Neutrophil % 82.3 % (36.0-66.0); Platelet Count 292 K/mm3 (150-450); Red Cell Distribution Width 12.9 % (11.5-14.0); White Blood Count 21.9 K/mm3 (4.0-10.5)
[2021-03-20 19:13] LABS: ACETAMINOPHEN < 10 ug/ml (10-30); ALBUMIN 5.9 g/dL (3.5-5.0); ALKALINE PHOSPHATASE 116 U/L (38-126); ANION GAP 41.2 MEQ/L (5-15); BLOOD UREA NITROGEN 64 mg/dL (9-20); CHLORIDE 79 mmol/L (98-107); Calcium 10.2 mg/dL (8.4-10.2); EST GLOMERULAR FILTRATION RATE 6.2 ML/MIN; ETHYL ALCOHOL < 10 mg/dL (0-10); Glucose 126 mg/dL (74-106); Potassium 4.1 mmol/L (3.5-5.1); SALICYLATE < 1.0 mg/dL (2-20); SGOT/AST 136 U/L (17-59); SGPT/ALT 55 U/L (0-50); SODIUM 124 mmol/L (137-145); Total Protein 10.9 g/dL (6.3-8.2)
[2021-03-20 19:21] LABS: Carbon Dioxide 8 mmol/L (22-30)
[2021-03-20 19:58] VITALS: BP 154/128; PULSE 103; O2SAT 98
--- NOTE | 2021-03-20 21:09 | ERPHSYRPT ---
- History of Present Illness Time Seen by Provider: 03/20/21 18:00 Source: patient Exam Limitations: no limitations Patient Subjective Stated Complaint: pt was found outside of worship, roaming around and thrashing about, garbled speech, resp easy, skin w/d/p, Triage Nursing Assessment: pt arrived per ambulance and police handcuffed, pt thrashing in bed, he admitts to smoking meth yesterday after grandmas , pt is restless, thrashing in bed Physician History: Patient is a 35-year-old male presents to our ED via EMS also escorted PD for evaluation of abnormal behavior. Patient was found roaming around and thrashing near a worship. Patient expressed pressured garbled speech. Patient states that he has been smoking meth for the past few days. No trauma. No fever. No nausea or vomiting. Symptoms are mild to moderate in intensity. No specific worsening or improving factors. Patient states that he has been depressed because his grandmother recently . Patient denies pain. No chest pain or shortness of breath. No nausea vomiting or diaphoresis. No abdominal pain. Patient voices no other complaints concerns at this time. Timing/Duration: day(s) Severity: moderate Modifying Factors: Improves With: nothing Associated Symptoms: denies symptoms Allergies/Adverse Reactions: No Known Drug Allergies Allergy (Verified 03/20/21 17:58) Home Medications: Quetiapine Fumarate [Seroquel] 1 tablet PO HS 04/26/19 [History] Hx Tetanus, Diphtheria Vaccination/Date Given: No Hx Influenza Vaccination/Date Given: No Hx Pneumococcal Vaccination/Date Given: No Immunizations Up to Date: Yes Travel Risk - International Travel Have you traveled outside of the country in past 3 weeks: No - Coronavirus Screening Are you exhibiting any of the following symptoms?: No - Vaccine Status Have you recieved a Covid-19 vaccination: Yes Urgent Care Nurse Practitioner: Moderna - Vaccination Dates Date of 2cond Vaccination (if applicable): ? - Review of Systems Constitutional: No Symptoms, No Fever, No Chills Eyes: No Symptoms Ears, Nose, & Throat: No Symptoms Respiratory: No Symptoms, No Cough, No Dyspnea Cardiac: No Symptoms, No Chest Pain, No Edema, No Syncope Abdominal/Gastrointestinal: No Symptoms, No Abdominal Pain, No Nausea, No Vomiting, No Diarrhea Genitourinary Symptoms: No Symptoms, No Dysuria Musculoskeletal: No Symptoms, No Back Pain, No Neck Pain Skin: No Rash Neurological: No Symptoms, No Dizziness, No Focal Weakness, No Sensory Changes Psychological: No Symptoms Endocrine: No Symptoms Hematologic/Lymphatic: No Symptoms Immunological/Allergic: No Symptoms All Other Systems: Reviewed and Negative - Past Medical History Pertinent Past Medical History: Yes Neurological History: No Pertinent History ENT History: No Pertinent History Cardiac History: Other Respiratory History: No Pertinent History Endocrine Medical History: No Pertinent History Musculoskeletal History: No Pertinent History GI Medical History: No Pertinent History History: No Pertinent History Psycho-Social History: Bipolar, Depression Male Reproductive Disorders: No Pertinent History Other Medical History: Heart Murmur - Past Surgical History Past Surgical History: No Neuro Surgical History: No Pertinent History Cardiac: No Pertinent History Respiratory: No Pertinent History Gastrointestinal: No Pertinent History Genitourinary: No Pertinent History Musculoskeletal: No Pertinent History Male Surgical History: No Pertinent History Other Surgical History: unable to obtain medical history d/t pt lethargic - Social History Smoking Status: Current every day smoker How long have you smoked: years Exposure to second hand smoke: Yes Drug Use: methamphetamines Patient Lives Alone: No - Nursing Vital Signs Nursing Vital Signs: Initial Vital Signs Temperature 97.8 F 03/20/21 17:58 Respiratory Rate 20 03/20/21 17:58 Blood Pressure 163/96 03/20/21 17:58 O2 Sat by Pulse Oximetry 95 03/20/21 17:58 Pain Scale Pain Intensity 0 - Physical Exam General Appearance: alert, other (Patient is thrashing in room. However he is calm and cooperative during evaluation.) Eye Exam: PERRL/EOMI, eyes nml inspection Ears, Nose, Throat Exam: normal ENT inspection, TMs normal, pharynx normal, moist mucous membranes Neck Exam: normal inspection, non-tender, supple, full range of motion Respiratory Exam: normal breath sounds, lungs clear, No respiratory distress Cardiovascular Exam: regular rate/rhythm, normal heart sounds, normal peripheral pulses Gastrointestinal/Abdomen Exam: soft, normal bowel sounds, No tenderness, No mass Back Exam: normal inspection, normal range of motion, No CVA tenderness, No vertebral tenderness Extremity Exam: normal inspection, normal range of motion, pelvis stable Neurologic Exam: alert, oriented x 3, cooperative, normal mood/affect, nml cerebellar function, nml station & gait, sensation nml, No motor deficits Skin Exam: normal color, warm, dry, No rash Lymphatic Exam: No adenopathy SpO2 Interpretation: normal SpO2: 98 O2 Delivery: Room Air - Course Nursing assessment & vital signs reviewed: Yes EKG Interpreted by Me: RATE (93), Sinus Rhythm, NORMAL AXIS, prolonged QT interval Ordered Tests: Active Orders 24 hr Category Date Time Status ACETAMINOPHEN Stat Lab 03/20/21 18:35 Completed CBC W DIFF Stat Lab 03/20/21 18:35 Completed CK (IN-HOUSE) [CK-Creatinine Phosphokinase] Stat Lab 03/20/21 22:10 Completed CMP Stat Lab 03/20/21 18:35 Completed ETHYL ALCOHOL Stat Lab 03/20/21 18:35 Completed SALICYLATE Stat Lab 03/20/21 18:35 Completed TROPONIN Q3H Lab 03/20/21 21:15 Completed TROPONIN Q3H Lab 03/21/21 00:30 Completed UA W/RFX UR CULTURE Stat Lab 03/20/21 18:10 Ordered Urine Triage Profile Stat Lab 03/20/21 18:10 Ordered Medication Summary Generic Name Dose Route Start Last Admin Trade Name Freq PRN Reason Stop Dose Admin Sodium Bicarbonate 75 meq/ 1,075 mls @ 150 mls/hr 03/21/21 00:30 03/21/21 00:48 Dextrose/Sodium Chloride IV 04/20/21 00:29 150 mls/hr .Q7H10M AL 150 mls/hr Administration Discontinued Medications Generic Name Dose Route Start Last Admin Trade Name Freq PRN Reason Stop Dose Admin Sodium Chloride 1,000 mls @ 999 mls/hr 03/20/21 21:18 03/20/21 23:05 Sodium Chloride 0.9% 1000 Ml IV 03/20/21 22:18 Infused .Q1H1M STA Infusion Sodium Chloride Confirm 03/20/21 21:19 Sodium Chloride 0.9% 1000 Ml Administered 03/20/21 21:20 Dose 1,000 mls @ ud .ROUTE .STK-MED ONE Sodium Chloride Confirm 03/21/21 00:45 Sodium Chloride 0.45% 1000 Ml Administered 03/21/21 00:46 Dose 1,000 mls @ ud IV .STK-MED ONE Sodium Bicarbonate Confirm 03/21/21 00:44 Sodium Bicarbonate 50 Meq/50 Ml Vial Administered 03/21/21 00:45 Dose 100 meq .ROUTE .STK-MED ONE Lab/Rad Data: Laboratory Result Diagrams 03/20/21 18:35 03/20/21 18:35 Laboratory Results 03/21/21 03/20/21 03/20/21 Range/Units 00:30 22:10 21:15 WBC (4.0-10.5) K/mm3 RBC (4.1-5.6) M/mm3 Hgb (12.5-18.0) gm/dl Hct (42-50) % MCV (78-100) fl MCH (26-32) pg MCHC (32-36) g/dl RDW (11.5-14.0) % Plt Count (150-450) K/mm3 MPV (7.5-11.0) fl Gran % (36.0-66.0) % Eos # (Auto) (0-0.5) Absolute Lymphs (auto) (1.0-4.6) Absolute Monos (auto) (0.0-1.3) Lymphocytes % (24.0-44.0) % Monocytes % (0.0-12.0) % Eosinophils % (0.00-5.0) % Basophils % (0.0-0.4) % Absolute Granulocytes (1.4-6.9) Basophils # (0-0.4) Sodium (137-145) mmol/L Potassium (3.5-5.1) mmol/L Chloride (98-107) mmol/L Carbon Dioxide (22-30) mmol/L Anion Gap (5-15) MEQ/L BUN (9-20) mg/dL Creatinine (0.66-1.25) mg/dL Estimated GFR ML/MIN Glucose (74-106) mg/dL Calcium (8.4-10.2) mg/dL Total Bilirubin (0.2-1.3) mg/dL AST (17-59) U/L ALT (0-50) U/L Alkaline Phosphatase (38-126) U/L Creatine Kinase 7241 H (55-170) U/L Troponin I 0.041 H* 0.041 H* (0.000-0.034) ng/mL Serum Total Protein (6.3-8.2) g/dL Albumin (3.5-5.0) g/dL Salicylates (2-20) mg/dL Acetaminophen (10-30) ug/ml Ethyl Alcohol (0-10) mg/dL 03/20/21 03/20/21 Range/Units 18:35 18:35 WBC 21.9 H (4.0-10.5) K/mm3 RBC 5.90 H (4.1-5.6) M/mm3 Hgb 18.2 H (12.5-18.0) gm/dl Hct 50.6 H (42-50) % MCV 85.8 (78-100) fl MCH 30.8 (26-32) pg MCHC 36.0 (32-36) g/dl RDW 12.9 (11.5-14.0) % Plt Count 292 (150-450) K/mm3 MPV 11.5 H (7.5-11.0) fl Gran % 82.3 H (36.0-66.0) % Eos # (Auto) 0.01 (0-0.5) Absolute Lymphs (auto) 0.76 L (1.0-4.6) Absolute Monos (auto) 3.09 H (0.0-1.3) Lymphocytes % 3.5 L (24.0-44.0) % Monocytes % 14.1 H (0.0-12.0) % Eosinophils % 0.0 (0.00-5.0) % Basophils % 0.1 (0.0-0.4) % Absolute Granulocytes 18.03 H (1.4-6.9) Basophils # 0.02 (0-0.4) Sodium 124 L (137-145) mmol/L Potassium 4.1 (3.5-5.1) mmol/L Chloride 79 L (98-107) mmol/L Carbon Dioxide 8 L* (22-30) mmol/L Anion Gap 41.2 H (5-15) MEQ/L BUN 64 H (9-20) mg/dL Creatinine 10.20 H (0.66-1.25) mg/dL Estimated GFR 6.2 ML/MIN Glucose 126 H (74-106) mg/dL Calcium 10.2 (8.4-10.2) mg/dL Total Bilirubin 1.40 H (0.2-1.3) mg/dL AST 136 H (17-59) U/L ALT 55 H (0-50) U/L Alkaline Phosphatase 116 (38-126) U/L Creatine Kinase (55-170) U/L Troponin I (0.000-0.034) ng/mL Serum Total Protein 10.9 H (6.3-8.2) g/dL Albumin 5.9 H (3.5-5.0) g/dL Salicylates < 1.0 L (2-20) mg/dL Acetaminophen < 10 L (10-30) ug/ml Ethyl Alcohol < 10 (0-10) mg/dL - Progress Progress: improved Progress Note: case discussed with Dr. Major of [facility] who accepts admission to observation. Case discussed with of nephrology who will accept consultation. IV fluids infused. Sodium bicarb infused. Plan of care discussed with patient. He agrees to transfer to [facility] for further evaluation and treatment. 03/21/21 01:56 Counseled pt/family regarding: lab results, diagnosis, rad results - Departure Departure Disposition: Transfer Clinical Impression: Leukocytosis, Thrombocytosis, Hyponatremia, Metabolic acidosis, Acute renal injury, Methamphetamine use, Rhabdomyolysis, Polycythemia Condition: Stable Critical Care Time: No Referrals: JOCELYN LAND MD [Primary Care Provider] -
[2021-03-20] MEDS ORDERED: Sodium Chloride 0.9% 1000 ML 1,000 ML IV STA (21:18)
[2021-03-20] MEDS ORDERED: Sodium Chloride 0.9% 1000 ML 1,000 ML ONE (21:19)
[2021-03-21] MEDS ORDERED: Sodium Bicarbonate 50 MEQ/50 ML VIAL*** 75 MEQ in Dextrose 5% -0.45 NaCl 1000 ML 1,000 ML IV SCH (00:30)
[2021-03-21] MEDS ORDERED: Sodium Bicarbonate 50 MEQ/50 ML VIAL ONE (00:44)
[2021-03-21 05:42] LABS: Slide Review 1 YES
== END 2021-03-21 02:37 | disposition short-term general hospital (02) ==
LOC: ED 17:55
DX: D72.829 Elevated white blood cell count, unspecified (principal); D47.3 Essential (hemorrhagic) thrombocythemia; E87.1 Hypo-osmolality and hyponatremia; E87.2 Acidosis; N17.9 Acute kidney failure, unspecified; M62.82 Rhabdomyolysis; D75.1 Secondary polycythemia; F11.90 Opioid use, unspecified, uncomplicated
CPT/HCPCS: 36000; 36415; 80053; 80307; 82550; 84484; 85025; 93005; 96360; 96365; 99285; G0480

== ENCOUNTER 2025-07-13 17:36 | Emergency (ER) | payer OTHER ==
[2025-07-13 17:57] VITALS: TEMP 98.1
--- NOTE | 2025-07-13 18:13 | ERPHSYRPT ---
- History of Present Illness Time Seen by Provider: 07/13/25 18:00 Source: patient Exam Limitations: no limitations Patient Subjective Stated Complaint: patient wanting to get cleared for direct admit to [facility] Triage Nursing Assessment: Patient arrived to ED via unknown means. On arrival, patient is alert and oriented x3. Patient reports recently leaving a drug rehabilitation facility in [place]. States he currently has a bed waiting for him at [facility]. Patient admits to using methamphetamine, heroin, and marijuana since leaving the rehab facility. Reports multiple mental health concerns and expresses emotional distress related to his recently leaving him, which has caused him to relapse back onto the drugs.. States he believes he would do better at [facility] where he is familiar with the staff. Physician History: This is a 39-year-old white male patient arrives by private vehicle sent here at the recommendation of [facility] for medical clearance. Patient is not suicidal or homicidal. However, he is having auditory hallucinations. In the last few days he has had visual hallucinations as well but no visual hallucinations today. He has been without his gabapentin, Suboxone and Seroquel for 3 days. Patient is suffering emotional distress secondary to his spouse leaving him. This is caused him to relapse into drug use. He admits to recently using heroin, methamphetamines and marijuana. He denies chest pain. He denies shortness of breath. He wants to obtain help. He has been to [facility] in the past and he feels they were very helpful to him Allergies/Adverse Reactions: No Known Drug Allergies Allergy (Verified 03/20/21 17:58) Home Medications: Quetiapine Fumarate [Seroquel] 1 tablet PO HS 04/26/19 [History] Hx Tetanus, Diphtheria Vaccination/Date Given: No Hx Influenza Vaccination/Date Given: No Hx Pneumococcal Vaccination/Date Given: No Immunizations Up to Date: Yes Travel Risk - International Travel Have you traveled outside of the country in past 3 weeks: No - Emerging Infectious Disease Are you exhibiting symptoms associated with any current EIDs: No - Past Medical History Pertinent Past Medical History: Yes Neurological History: No Pertinent History ENT History: No Pertinent History Cardiac History: Other Respiratory History: No Pertinent History Endocrine Medical History: No Pertinent History Musculoskeletal History: No Pertinent History GI Medical History: No Pertinent History History: No Pertinent History Psycho-Social History: Bipolar, Depression Male Reproductive Disorders: No Pertinent History Other Medical History: Heart Murmur - Past Surgical History Past Surgical History: No Neuro Surgical History: No Pertinent History Cardiac: No Pertinent History Respiratory: No Pertinent History Gastrointestinal: No Pertinent History Genitourinary: No Pertinent History Musculoskeletal: No Pertinent History Male Surgical History: No Pertinent History Other Surgical History: unable to obtain medical history d/t pt lethargic - Social History Smoking Status: Current every day smoker Drug Use: marijuana, methamphetamines, heroin - Social Determinants of Health Will the patient participate in the screening: Yes Do you worry about a steady place to live?: Yes Do you have any problems with any of the following?: No known problems In the past 12 months,have you had to go without utilities?: No Transportation Issues: No Has anyone in your support network made you feel unsafe?: No Have you or anyone in your house had to go w/o enough food: No - Nursing Vital Signs Nursing Vital Signs: Initial Vital Signs Temperature 98.1 F 07/13/25 17:37 Pulse Rate 82 07/13/25 17:37 Respiratory Rate 18 07/13/25 17:37 Blood Pressure 145/79 07/13/25 17:37 O2 Sat by Pulse Oximetry 98 07/13/25 17:37 Pain Scale Pain Intensity 0 - Physical Exam SpO2: 98 - Course Nursing assessment & vital signs reviewed: Yes EKG Interpreted by Me: RATE (59), NORMAL AXIS, NORMAL INTERVALS, NORMAL QRS, Other (QTc is 404. No evidence of acute ischemia on this twelve-lead EKG) Ordered Tests: Active Orders 24 hr Category Date Time Status Pharmacy Sales Representative STAT Care 07/13/25 18:23 Active EKG-ER Only STAT Care 07/13/25 18:23 Active ACETAMINOPHEN Stat Lab 07/13/25 18:30 Received CBC W DIFF Stat Lab 07/13/25 18:30 Received CMP Stat Lab 07/13/25 18:30 Received ETHYL ALCOHOL Stat Lab 07/13/25 18:30 Received SALICYLATE Stat Lab 07/13/25 18:30 Received UA W/RFX UR CULTURE Stat Lab 07/13/25 18:23 Ordered Urine Triage Profile Stat Lab 07/13/25 18:23 Ordered - Progress Progress Note: 07/13/25 18:44 My medical decision making and the assignment of moderate to high complexity of this patient's medical issue today is based on review of the patient's past medical history, reviewed patient's medication list, reviewed the patient drug allergy list, history present illness and physical findings on examination. The workup in this patient includes twelve-lead EKG, CBC, CMP, acetaminophen level, salicylate level, urinalysis, urine drug triage and mental health consultation/evaluation. In addition to [employer] ethyl alcohol level obtained. Differential diagnosis includes but is not limited to visual hallucinations, auditory hallucinations, depression, illicit drug use, alcohol use/abuse I am transferring care of this patient to Dr. Weaver at shift change. He will follow-up with the results of the workup and make final disposition. - Departure Departure Disposition: Home Clinical Impression: Hallucinations Condition: Stable Critical Care Time: No Referrals: JOCELYN LAND MD [Primary Care Provider, [facility]] - Follow up/PCP as directed
[2025-07-13 18:36] LABS: BASOPHIL % 0.4 % (0.2-1.2); Basophil (Absolute #) 0.05 x10^3/uL (0.01-0.08); Eosinophil (Absolute #) 0.02 x10^3/uL (0.04-0.54); Hematocrit 41.1 % (40.1-51.0); Hemoglobin 12.7 g/dL (13.7-17.5); IMMATURE GRAN # 0.05 x10^3u/L (0.001-0.031); IMMATURE GRAN % 0.4 % (0.001-0.429); Lymphocyte (Absolute #) 2.36 x10^3/uL (1.32-3.57); Mean Corpuscular Hemoglobin 30.5 pg (25.7-32.2); Mean Corpuscular Hgb Concent. 30.9 g/dL (32.3-36.5); Monocyte (Absolute #) 0.70 x10^3/uL (0.30-0.82); NUCLEATED RBC # 0.00 x10^3u/L (0.00-0.012); NUCLEATED RBC % 0.0 % (0.00-0.2); Platelet Count 322 x10^3/uL (163-337); Red Blood Count 4.17 x10^6/uL (4.63-6.08); White Blood Count 14.2 x10^3/uL (4.23-9.07)
[2025-07-13 18:52] LABS: Calcium 9.3 mg/dL (8.4-10.2); Carbon Dioxide 26 mmol/L (22-30); Creatinine 1 0.82 mg/dL (0.66-1.25); EST GLOMERULAR FILTRATION RATE 115.3 ML/MIN; ETHYL ALCOHOL < 10 mg/dL (0-10); Glucose 95 mg/dL (74-106); Potassium 3.5 mmol/L (3.5-5.1); SGOT/AST 36 U/L (17-59); SGPT/ALT 30 U/L (0-50); Total Protein 7.3 g/dL (6.3-8.2)
[2025-07-13 18:57] LABS: Glucose, Urine Negative (Negative); Protein,Urine Dip Negative (Negative); RBC 0-2 /HPF (0-5); WBC 0-2 /HPF (0-5)
[2025-07-13 19:07] LABS: Barbiturate,Urine NEGATIVE (NEGATIVE); Benzodiazepine,Urine NEGATIVE (NEGATIVE); Cocaine,Urine NEGATIVE (NEGATIVE); Methadone,Urine NEGATIVE (NEGATIVE); Opiate,Urine NEGATIVE (NEGATIVE); PCP,Urine NEGATIVE (NEGATIVE); THC,Urine POSITIVE (NEGATIVE)
[2025-07-13 19:21] VITALS: O2SAT 99
[2025-07-13 19:58] LABS: Amphetamine,Urine POSITIVE (NEGATIVE)
--- NOTE | 2025-07-13 20:25 | ERPHSYRPT ---
- History of Present Illness Time Seen by Provider: 07/13/25 18:00 Patient Subjective Stated Complaint: patient wanting to get cleared for direct admit to [facility] Triage Nursing Assessment: Patient arrived to ED via unknown means. On arrival, patient is alert and oriented x3. Patient reports recently leaving a drug rehabilitation facility in [place]. States he currently has a bed waiting for him at [facility]. Patient admits to using methamphetamine, heroin, and marijuana since leaving the rehab facility. Reports multiple mental health concerns and expresses emotional distress related to his recently leaving him, which has caused him to relapse back onto the drugs.. States he believes he would do better at [facility] where he is familiar with the staff. Allergies/Adverse Reactions: No Known Drug Allergies Allergy (Verified 03/20/21 17:58) Home Medications: Quetiapine Fumarate [Seroquel] 1 tablet PO HS 04/26/19 [History] Hx Tetanus, Diphtheria Vaccination/Date Given: No Hx Influenza Vaccination/Date Given: No Hx Pneumococcal Vaccination/Date Given: No Immunizations Up to Date: Yes Travel Risk - International Travel Have you traveled outside of the country in past 3 weeks: No - Emerging Infectious Disease Are you exhibiting symptoms associated with any current EIDs: No - Past Medical History Pertinent Past Medical History: Yes Neurological History: No Pertinent History ENT History: No Pertinent History Cardiac History: Other Respiratory History: No Pertinent History Endocrine Medical History: No Pertinent History Musculoskeletal History: No Pertinent History GI Medical History: No Pertinent History History: No Pertinent History Psycho-Social History: Bipolar, Depression Male Reproductive Disorders: No Pertinent History Other Medical History: Heart Murmur - Past Surgical History Past Surgical History: No Neuro Surgical History: No Pertinent History Cardiac: No Pertinent History Respiratory: No Pertinent History Gastrointestinal: No Pertinent History Genitourinary: No Pertinent History Musculoskeletal: No Pertinent History Male Surgical History: No Pertinent History Other Surgical History: unable to obtain medical history d/t pt lethargic - Social History Smoking Status: Current every day smoker Drug Use: marijuana, methamphetamines, heroin - Social Determinants of Health Will the patient participate in the screening: Yes Do you worry about a steady place to live?: Yes Do you have any problems with any of the following?: No known problems In the past 12 months,have you had to go without utilities?: No Transportation Issues: No Has anyone in your support network made you feel unsafe?: No Have you or anyone in your house had to go w/o enough food: No - Nursing Vital Signs Nursing Vital Signs: Initial Vital Signs Temperature 98.1 F 07/13/25 17:37 Pulse Rate 82 07/13/25 17:37 Respiratory Rate 18 07/13/25 17:37 Blood Pressure 145/79 07/13/25 17:37 O2 Sat by Pulse Oximetry 98 07/13/25 17:37 Pain Scale Pain Intensity 0 - Physical Exam SpO2 Interpretation: normal SpO2: 99 Ordered Tests: Active Orders 24 hr Category Date Time Status Powder Coat Painter STAT Care 07/13/25 18:23 Active EKG-ER Only STAT Care 07/13/25 18:23 Active ACETAMINOPHEN Stat Lab 07/13/25 18:30 Completed CBC W DIFF Stat Lab 07/13/25 18:30 Completed CMP Stat Lab 07/13/25 18:30 Completed ETHYL ALCOHOL Stat Lab 07/13/25 18:30 Completed SALICYLATE Stat Lab 07/13/25 18:30 Completed UA W/RFX UR CULTURE Stat Lab 07/13/25 18:23 Received Urine Triage Profile Stat Lab 07/13/25 18:23 Completed Lab/Rad Data: Laboratory Result Diagrams 07/13/25 18:30 07/13/25 18:30 Laboratory Results 07/13/25 07/13/25 07/13/25 Range/Units 18:30 18:30 18:23 WBC 14.2 H (4.23-9.07) x10^3/uL RBC 4.17 L (4.63-6.08) x10^6/uL Hgb 12.7 L (13.7-17.5) g/dL Hct 41.1 (40.1-51.0) % MCV 98.6 H (79.0-92.2) fL MCH 30.5 (25.7-32.2) pg MCHC 30.9 L (32.3-36.5) g/dL RDW 12.0 (11.6-14.4) % Plt Count 322 (163-337) x10^3/uL MPV 10.4 (9.4-12.4) fL Gran % 77.5 H (34.0-67.9) % Immature Gran % (Auto) 0.4 (0.001-0.429) % Nucleat RBC Rel Count 0.0 (0.00-0.2) % Eos # (Auto) 0.02 L (0.04-0.54) x10^3/uL Immature Gran # (Auto) 0.05 H (0.001-0.031) x10^3u/L Absolute Lymphs (auto) 2.36 (1.32-3.57) x10^3/uL Absolute Monos (auto) 0.70 (0.30-0.82) x10^3/uL Absolute Nucleated RBC 0.00 (0.00-0.012) x10^3u/L Lymphocytes % 16.7 L (21.8-53.1) % Monocytes % 4.9 L (5.3-12.2) % Eosinophils % 0.1 L (0.8-7.0) % Basophils % 0.4 (0.2-1.2) % Absolute Granulocytes 10.98 H (1.78-5.38) x10^3/uL Basophils # 0.05 (0.01-0.08) x10^3/uL Sodium 141 (135-145) mmol/L Potassium 3.5 (3.5-5.1) mmol/L Chloride 105 (98-107) mmol/L Carbon Dioxide 26 (22-30) mmol/L Anion Gap 14.5 (5-15) MEQ/L BUN 9 (9-20) mg/dL Creatinine 0.82 (0.66-1.25) mg/dL Estimated GFR 115.3 ML/MIN Glucose 95 (74-106) mg/dL Calcium 9.3 (8.4-10.2) mg/dL Total Bilirubin 0.20 (0.2-1.3) mg/dL AST 36 (17-59) U/L ALT 30 (0-50) U/L Alkaline Phosphatase 72 (38-126) U/L Serum Total Protein 7.3 (6.3-8.2) g/dL Albumin 4.3 (3.5-5.0) g/dL Salicylates < 1.0 L (2-20) mg/dL Urine Opiates Level NEGATIVE (NEGATIVE) Ur Methadone NEGATIVE (NEGATIVE) Acetaminophen < 10 L (10-30) ug/ml Urine Barbiturates NEGATIVE (NEGATIVE) Ur Phencyclidine (PCP) NEGATIVE (NEGATIVE) Urine Amphetamine POSITIVE A (NEGATIVE) U Benzodiazepine Level NEGATIVE (NEGATIVE) Urine Cocaine NEGATIVE (NEGATIVE) Urine Marijuana (THC) POSITIVE A (NEGATIVE) Ethyl Alcohol < 10 (0-10) mg/dL - Progress Progress Note: 07/13/25 20:[address] Richter, detox unit recommends outpatient follow up - Departure Departure Disposition: Home Clinical Impression: Hallucination, Polysubstance abuse Condition: Stable Critical Care Time: No Referrals: JOCELYN LAND MD [Primary Care Provider, [facility]] - Follow up with PCP 4 days Instructions: Substance use disorder - ED discharge instructions
[2025-07-13 20:36] VITALS: BP 139/91; PULSE 60; RESP 18
== END 2025-07-13 20:37 | disposition home or self-care (01) ==
LOC: ED 17:36
DX: R44.0 Auditory hallucinations (principal); F19.10 Other psychoactive substance abuse, uncomplicated; Z79.899 Other long term (current) drug therapy; Z72.0 Tobacco use; Z59.819 Housing instability, housed unspecified; Z63.5 Disruption of family by separation and divorce